=== PATIENT | male | born 1955 | race Caucasian/White ===

== ENCOUNTER 2018-02-03 08:33 | Emergency (ER) | payer OTHER ==
[2018-02-03 08:41] VITALS: BP 117/72
--- NOTE | 2018-02-03 08:56 | EDPHY ---
H & P Time Seen by Provider: 02/03/18 08:55 HPI/ROS: Chief complaint. Chest wall injury HPI. 63-year-old male with left posterior back injury. It occurred 2 days ago when he was descending long speak and lost his balance in a [place] fell backwards striking his left posterior back. Hurts to twist and move and deep breath. However he is not short of breath. Denies any other injury or illness. No head injury or neck pain. No pain to his spine. ROS Constitutional. no fever/chills, no weakness Eyes. no problems with vision ENT. no sore throat, no nasal drainage Cardiovascular. no chest pain Respiratory. no shortness of breath, no cough Abdominal. no abdominal pain, no nausea/vomiting, no diarrhea . no problems urinating MS. Left posterior back pain Skin. Abrasion to left posterior back Lymph. no swollen glands Neuro. no headache, no dizziness, no difficulty walking or with speech Past Medical/Surgical History: Achilles tendon injury Social History: , nonsmoker, no alcohol Smoking Status: Former smoker Physical Exam: General Appearance: Alert well-developed male mild distress vital signs are stable Eyes: Pupils equal and round no pallor or injection. ENT, Mouth: Mucous membranes are moist. Respiratory: There are no retractions, lungs are clear to auscultation. Breath sounds are full and equal Cardiovascular: Regular rate and rhythm. Gastrointestinal: Abdomen is soft and nontender, no masses, bowel sounds normal. Neurological: Awake and alert, sensory and motor exams grossly normal. Skin: Abrasion to left posterior back just below the inferior tip of the scapula Musculoskeletal: No C, T, L, S spine tenderness. Tenderness to the left posterior back mid scapular line at about T7, T8. Extremities symmetrical, full range of motion. Psychiatric: Patient is oriented X 3, there is no agitation. Constitutional: Initial Vital Signs Temperature (C) 36.9 C 02/03/18 08:36 Heart Rate 68 02/03/18 08:36 Respiratory Rate 18 02/03/18 08:36 Blood Pressure 117/72 02/03/18 08:36 O2 Sat (%) 96 02/03/18 08:36 Allergies/Adverse Reactions: No Known Allergies Allergy (Unverified 02/03/18 08:40) Home Medications: Medication Instructions Recorded NK [No Known Home Meds] 02/03/18 Medical Decision Making - Diagnostics Imaging Results: Imaging Impressions Chest X-Ray 02/03/18 08:45 Impression: There is no acute abnormality identified. Chest x-ray interpreted by me shows no evidence for pneumothorax or left-sided rib fracture ED Course/Re-evaluation: Re-evaluation 9:07 a.m.. Patient, his , and I discussed imaging study results, treatment plan including criteria for return and importance of follow- up and further evaluation. They expressed understanding and agreement Differential Diagnosis: I considered rib fracture, contusion, pneumothorax Departure - Departure Disposition: Home, Routine, Self-Care Clinical Impression: Contusion of back wall of thorax Qualifiers: Encounter type: initial encounter Laterality: left Qualified Code(s): S20.222A - Contusion of left back wall of thorax, initial encounter Condition: Good Instructions: Contusion in Adults (ED) Additional Instructions: Ibuprofen 600 mg every 6 hr as needed for discomfort. Return for worsening symptoms. Activity as tolerated. Recheck in 1 week if not continuing to improve Referrals: NONE *PRIMARY CARE P,. [Primary Care Provider] - As per Instructions Thu Maldonado MD [Medical Doctor] - 5-7 days, if not improved
== END 2018-02-03 09:23 | disposition home or self-care (01) ==
LOC: CED 08:33
DX: S20.222A Contusion of left back wall of thorax, initial encounter (principal); Z87.891 Personal history of nicotine dependence; W01.198A Fall on same level from slipping, tripping and stumbling with subsequent striking against other object, initial encounter
CPT/HCPCS: 71046-PO

== ENCOUNTER 2018-02-06 19:39 | Emergency (ER) | payer OTHER ==
--- NOTE | 2018-02-06 19:45 | EDPHY ---
H & P Stated Complaint: climbing fall on 02/01 worensing back pain Time Seen by Provider: 02/06/18 19:45 HPI/ROS: CHIEF COMPLAINT: Worsening left posterior rib pain HISTORY OF PRESENT ILLNESS: The patient presents the ED with worsening posterior left rib pain. The patient was involved in a fall while hiking on the 01 of February. He was seen in the emergency department after the accident. He had an x-ray which demonstrated no obvious rib fracture pneumothorax. He was discharged home with a diagnosis of chest wall contusion. The patient reports that he is having pain with coughing and excruciating pain with movement. He has point pain in his right left posterior ribs. He denies any abdominal pain, headache, numbness or weakness. The patient has no complaints of anterior chest discomfort. The patient denies significant past medical history. He is not anticoagulated. REVIEW OF SYSTEMS: A comprehensive 10 point review of systems is otherwise negative aside from elements mentioned in the history of present illness. Source: Patient Exam Limitations: No limitations - Personal History Current Tetanus/Diphtheria Vaccine: Unsure Current Tetanus Diphtheria and Acellular Pertussis (TDAP): Unsure - Medical/Surgical History Hx Asthma: No Hx Chronic Respiratory Disease: No Hx Diabetes: No Hx Cardiac Disease: No Hx Renal Disease: No Hx Cirrhosis: No Hx Alcoholism: No Hx HIV/AIDS: No Hx Splenectomy or Spleen Trauma: No Other PMH: Achilles tendon - Social History Smoking Status: Former smoker - Physical Exam Exam: General Appearance: Alert, no distress Head: Atraumatic Eyes: Pupils equal, round, reactive ENT, Mouth: No hemotympanum, no oral trauma Neck: Nontender, trachea midline Respiratory: Tenderness to palpation left posterior chest wall, no subcutaneous emphysema Cardiovascular: Regular rate and rhythm Abdomen: Abdomen is soft and nontender, pelvis stable Skin: No lacerations, No abrasion Back: No midline T/L/S pain Extremities: Nontender, full range of motion Neurological: A&Ox3, normal motor function, normal sensory exam Constitutional: Initial Vital Signs Temperature (C) 36.9 C 02/06/18 19:41 Heart Rate 63 02/06/18 19:41 Respiratory Rate 16 02/06/18 19:41 Blood Pressure 148/75 H 02/06/18 19:41 O2 Sat (%) 95 02/06/18 19:41 O2 Delivery Mode Room Air Allergies/Adverse Reactions: No Known Allergies Allergy (Unverified 02/03/18 08:40) Home Medications: Medication Instructions Recorded Lidocaine [Lidoderm] 1 each TP AD PRN #15 adh..patch 02/06/18 oxyCODONE/APAP 5/325 [Percocet 1 - 2 tab PO Q6-8PRN PRN #20 tab 02/06/18 5/325 (RX)] Medical Decision Making - Diagnostics Imaging Results: Chest x-ray PA lateral with rib series, images reviewed by myself and discussed with radiologist, nondisplaced left 10th and 11th rib fractures. ED Course/Re-evaluation: The patient presents to the ED with ongoing rib pain following a fall several days ago. I reviewed his prior chest x-ray. I repeated a chest x-ray given his ongoing symptoms. I see no evidence of an obvious hemothorax or pneumothorax. There is a nondisplaced rib fracture noted in the left 10th and 11th rib on the rib views. The patient has no abdominal tenderness. He is hemodynamically stable. The patient was given a lidocaine patch in the emergency department. He will be given a prescription for stronger pain medications. Differential Diagnosis: Differential diagnosis considered includes rib fracture, pneumothorax, hemothorax - Data Points Medications Given: Discontinued Medications Miscellaneous Medication (Icy Hot Lidocaine/Menthol 4%/1% Patch) 1 patch TD EDNOW ONE Stop: 02/06/18 20:07 Last Admin: 02/06/18 20:32 Dose: 1 patch Departure - Departure Disposition: Home, Routine, Self-Care Clinical Impression: Rib fracture Condition: Good Instructions: Rib Fracture (ED) Additional Instructions: 1. Take Ibuprofen or Motrin 600 mg by mouth three times a day. 2. Lidocaine patches as directed 3. Percocet as needed for severe pain 4. Please return to the emergency department for any markedly worsening symptoms or other concerns. Prescriptions: Lidocaine [Lidoderm] 1 each TP AD PRN #15 adh..patch PRN Reason: Pain, Breakthrough oxyCODONE/APAP 5/325 [Percocet 5/325 (RX)] 1 - 2 tab PO Q6-8PRN PRN #20 tab PRN Reason: for pain
[2018-02-06] MEDS ORDERED: LIDOCAINE 4%/MENTHOL 1% PATCH TD ONE (20:06)
[2018-02-06] MEDS ORDERED: OXYCODONE/APAP 5/325MG PREPACK#4 BTL TAKEHOME ONE (20:37)
[2018-02-06] MEDS ORDERED: OXYCODONE/APAP 5/325 TAB PO ONE (20:44)
[2018-02-06] MEDS ORDERED: PATCH REMOVAL 1 EA PATCH TD SCH (21:00)
[2018-02-06 21:05] VITALS: BP 150/86
== END 2018-02-06 21:02 | disposition home or self-care (01) ==
DX: S22.42XA Multiple fractures of ribs, left side, initial encounter for closed fracture (principal); Z87.891 Personal history of nicotine dependence; W18.39XA Other fall on same level, initial encounter; Y99.8 Other external cause status; Y93.01 Activity, walking, marching and hiking